=== PATIENT | female | born 1970 | race Caucasian/White ===

== ENCOUNTER 2018-08-26 07:59 | Day surgery (SDC) | payer BC ==
[~2018-08-26] VITALS: Ht 165.1 cm; Wt 89.4 kg
[~2018-08-26 07:59] MED LIST: AUGM875T28 PO; CALCD50TA PO; LEVO200T4 PO; LORT5TAB PO; LR 1,000 ML IV ONE; MULTCAP PO; SYNT75TA PO; TYLE325T5 PO; VITA100072 PO; VITA200016 PO
[2018-08-26 08:25] LABS: HEMATOCRIT 28.8 % (36.0-47.0); HEMOGLOBIN 8.7 g/dl (12.0-15.5); MEAN CORPUSCULAR HEMOGLOBIN 25.2 pg (27.0-33.0); MEAN CORPUSCULAR HGB CONC 30.2 g/dl (32.0-36.5); MEAN CORPUSCULAR VOLUME 83.5 fl (80.0-96.0); PLATELET COUNT, AUTOMATED 321 10^3/uL (150-450); RED BLOOD COUNT 3.45 10^6/uL (4.00-5.40); WHITE BLOOD COUNT 4.6 10^3/uL (4.0-10.0)
[2018-08-26 08:35] LABS: URINE PREG TEST NEGATIVE (NEGATIVE)
[2018-08-26] MEDS ORDERED: KETOROLAC 60 MG/2 ML VIAL (J1885) As Ordered ONE (10:20)
[2018-08-26] MEDS ORDERED: fentaNYL 100 MCG/2 ML INJECTION (J3010) As Ordered ONE (10:20)
[2018-08-26] MEDS ORDERED: PROPOFOL 200 MG/20 ML VIAL As Ordered ONE (10:20)
[2018-08-26] MEDS ORDERED: ONDANSETRON 4MG/2ML VIAL (J2405) As Ordered ONE (10:20)
[2018-08-26] MEDS ORDERED: dexameTHASONE 4 MG/ML 1ML VIAL (J1100) As Ordered ONE (10:20)
[2018-08-26] MEDS ORDERED: MIDAZOLAM INJ 2 MG/2 ML VIAL (J2250) As Ordered ONE (10:20)
[2018-08-26] MEDS ORDERED: METOCLOPRAMIDE INJ 10MG/2ML VIAL (J2765) As Ordered ONE (10:20)
[2018-08-26] MEDS ORDERED: LIDOCAINE 2% INJ 100 MG/5 ML SDV (FOR ANES.) As Ordered ONE (10:20)
[2018-08-26] MEDS ORDERED: ACETAMINOPHEN 650 MG SUPP As Ordered ONE (10:25)
[2018-08-26] MEDS ORDERED: METOCLOPRAMIDE INJ 10MG/2ML VIAL (J2765) IV PRN (11:30)
[2018-08-26] MEDS ORDERED: ONDANSETRON 4MG/2ML VIAL (J2405) IV PRN (11:30)
[2018-08-26] MEDS ORDERED: LR 1,000 ML IV SCH (11:30)
[2018-08-26] MEDS ORDERED: fentaNYL 100 MCG/2 ML INJECTION (J3010) IV PRN (11:30)
[2018-08-26] MEDS ORDERED: PERCOCET 5MG/325MG TAB PO PRN ×2 (11:30)
[2018-08-26] MEDS ORDERED: IBUP80TA PO (12:04)
[2018-08-26 13:45] VITALS: BP 114/73
[2018-08-26] MEDS ORDERED: IBUPROFEN 800 MG TAB PO SCH (17:00)
--- NOTE | 2018-08-29 14:01 | RO ---
DATE OF PROCEDURE: 08/26/2018 Myah is a 48-year-old female with a history of menorrhagia. After counseling in the office, a decision was made for dilation and curettage (D and C), hysteroscopy and NovaSure ablation. PREOPERATIVE DIAGNOSIS: Menorrhagia. POSTOPERATIVE DIAGNOSIS: Menorrhagia. PROCEDURE: 1. D and C. 2. Hysteroscopy. 3. NovaSure ablation. SURGEON: Dr. Elliott Ross BAG MAKER: ANESTHESIA: General. COMPLICATIONS: None. ESTIMATED BLOOD LOSS: Less than 10 mL. FINDINGS: Normal endometrial cavity. Tubal ostia visualized. Good ablative process noted. DESCRIPTION OF PROCEDURE: After obtaining informed consent, the patient was taken to the operating room where general anesthetic was found to be adequate. She was then draped and prepped in the usual sterile fashion in the dorsal lithotomy position. At this point, a straight catheter of the bladder was performed for approximately 250 mL of urine. We then placed a weighted speculum in the posterior fornix of the vagina. Using a Petty retractor, the anterior lip of the cervix was then grasped with a single-tooth tenaculum. The uterus was sounded to approximately 9 cm in size giving a cavity length of 6.5. The cervix was serially dilated. The hysteroscope was inserted with the above-noted findings. At this point, the hysteroscope was removed and a sharp curettage of the endometrial lining was done until a gritty texture was felt. The hysteroscope was then removed. The NovaSure endometrial device was inserted. The cavity length adjusted to 6.5 and the cavity width to 3. Cavity test was done. After passing the cavity test, the device was enabled and the endometrial ablation cycle was then started. The cycle lasted approximately 50 seconds. Good ablative process noted. The patient tolerated the procedure well. She was then transferred to recovery room in stable condition.
== END 2018-08-26 13:50 | disposition home or self-care (01) ==
LOC: M SDC 07:59
PROVIDERS: ATTEND Obstetrics & Gynecology
DX: N92.1 Excessive and frequent menstruation with irregular cycle (principal); E03.9 Hypothyroidism, unspecified; Z98.84 Bariatric surgery status
CPT/HCPCS: 36415; 58563; 84703; 85027; 86850; 86900; 86901; 88305; J1100; J1885; J2250; J2405; J2765; J3010

== ENCOUNTER 2019-08-01 07:16 | Day surgery (SDC) | payer BC ==
[~2019-08-01] VITALS: Ht 165.1 cm; Wt 91.2 kg
[~2019-08-01 07:16] MED LIST changes: +IBUP80TA PO; +LIDOCAINE 2% INJ 100 MG/5 ML SDV (FOR ANES.) As Ordered ONE; -LR 1,000 ML IV ONE; +NS 1,000 ML IV ONE; +SERT50TA29 PO; +SYNT125T PO; +VITA100018 PO; -VITA100072 PO; +propofoL 200 MG/20 ML VIAL As Ordered ONE
[2019-08-01] MEDS ORDERED: fentaNYL 100 MCG/2 ML INJECTION (J3010) As Ordered ONE (08:33)
--- NOTE | 2019-08-01 09:14 | ROOR ---
Patient Name: Myah Aponte Procedure Date: 08/01/2019 8:31 AM Date of : 1970 Age: 49 Room: [facility] Gender: Female Note Status: Finalized Procedure: Upper GI endoscopy Indications: Anemia Providers: Blayne Dyer MD Referring MD: DUGLAS Irvin Requesting Provider: Medicines: Monitored Anesthesia Care Complications: No immediate complications. Procedure: Pre-Anesthesia Assessment: - Prior to the procedure, a History and Physical was performed, and patient medications and allergies were reviewed. The patient is competent. The risks and benefits of the procedure and the sedation options and risks were discussed with the patient. All questions were answered and informed consent was obtained. Patient identification and proposed procedure were verified by the physician, the nurse and the anesthesiologist in the procedure room. Mental Status Examination: alert and oriented. Airway Examination: normal oropharyngeal airway and neck mobility. CV Examination: regular rate and rhythm. Prophylactic Antibiotics: The patient does not require prophylactic antibiotics. Prior Anticoagulants: The patient has taken no previous anticoagulant or antiplatelet agents. ASA Grade Assessment: II - A patient with mild systemic disease. After reviewing the risks and benefits, the patient was deemed in satisfactory condition to undergo the procedure. The anesthesia plan was to use monitored anesthesia care (MAC). Immediately prior to administration of medications, the patient was re-assessed for adequacy to receive sedatives. The heart rate, respiratory rate, oxygen saturations, blood pressure, adequacy of pulmonary ventilation, and response to care were monitored throughout the procedure. The physical status of the patient was re-assessed after the procedure. The Endoscope was introduced through the mouth, and advanced to the efferent jejunal loop. The upper GI endoscopy was accomplished without difficulty. The patient tolerated the procedure well. Findings: The examined esophagus was normal. Evidence of a gastric bypass was found. A gastric pouch with a small size was found. The gastrojejunal anastomosis was characterized by healthy appearing mucosa. This was traversed. The gjenj-dv-elznmty limb was characterized by healthy appearing mucosa. The wmihshkk-go-pukmyrb limb was not examined as it could not be found. Impression: - Normal esophagus. - Gastric bypass with a small-sized pouch. Gastrojejunal anastomosis characterized by healthy appearing mucosa. - No specimens collected. Recommendation: - Discharge patient to home. - Resume previous diet. - Continue present medications. Blayne Dyer MD Blayne Dyer MD 08/01/2019 9:14:04 AM Electronically signed by Blayne Dyer MD Number of Addenda: 0 Note Initiated On: 08/01/2019 8:31 AM Estimated Blood Loss: Estimated blood loss: none.
--- NOTE | 2019-08-01 09:19 | ROOR ---
Patient Name: Myah Aponte Procedure Date: 08/01/2019 8:32 AM Date of : 1970 Age: 49 Room: [facility] Gender: Female Note Status: Finalized Procedure: Colonoscopy Indications: Screening in patient at increased risk: Colorectal cancer in mother before age 60, This is the patient's first colonoscopy Providers: Blayne Dyer MD Referring MD: DUGLAS Irvin Requesting Provider: Medicines: Monitored Anesthesia Care Complications: No immediate complications. Procedure: Pre-Anesthesia Assessment: - Prior to the procedure, a History and Physical was performed, and patient medications and allergies were reviewed. The patient is competent. The risks and benefits of the procedure and the sedation options and risks were discussed with the patient. All questions were answered and informed consent was obtained. Patient identification and proposed procedure were verified by the physician, the nurse and the anesthesiologist in the procedure room. Mental Status Examination: alert and oriented. Airway Examination: normal oropharyngeal airway and neck mobility. CV Examination: regular rate and rhythm. Prophylactic Antibiotics: The patient does not require prophylactic antibiotics. Prior Anticoagulants: The patient has taken no previous anticoagulant or antiplatelet agents. ASA Grade Assessment: II - A patient with mild systemic disease. After reviewing the risks and benefits, the patient was deemed in satisfactory condition to undergo the procedure. The anesthesia plan was to use monitored anesthesia care (MAC). Immediately prior to administration of medications, the patient was re-assessed for adequacy to receive sedatives. The heart rate, respiratory rate, oxygen saturations, blood pressure, adequacy of pulmonary ventilation, and response to care were monitored throughout the procedure. The physical status of the patient was re-assessed after the procedure. The Colonoscope was introduced through the anus and advanced to the cecum, identified by appendiceal orifice and ileocecal valve. The colonoscopy was performed without difficulty. The patient tolerated the procedure well. The quality of the bowel preparation was excellent. Findings: The perianal and digital rectal examinations were normal. The colon (entire examined portion) appeared normal. Impression: - The entire examined colon is normal. - No specimens collected. Recommendation: - Discharge patient to home. - Resume previous diet. - Continue present medications. - Repeat colonoscopy in 5 years for screening purposes. Blayne Dyer MD Blayne Dyer MD 08/01/2019 9:18:40 AM Electronically signed by Blayne Dyer MD Number of Addenda: 0 Note Initiated On: 08/01/2019 8:32 AM Estimated Blood Loss: Estimated blood loss: none.
[2019-08-01 09:30] VITALS: BP 96/58
== END 2019-08-01 09:43 | disposition home or self-care (01) ==
LOC: M OPP 07:16
PROVIDERS: ATTEND Surgery
DX: Z12.11 Encounter for screening for malignant neoplasm of colon (principal); Z80.0 Family history of malignant neoplasm of digestive organs; Z98.84 Bariatric surgery status; D64.9 Anemia, unspecified; Z79.899 Other long term (current) drug therapy
CPT/HCPCS: 43235; 45378; J3010